=== PATIENT | male | born 1995 ===

== ENCOUNTER 2022-03-14 23:19 | Emergency (ER) | payer OTHER ==
[2022-03-14 23:27] VITALS: BP 108/59
[2022-03-14] MEDS ORDERED: ACETAMINOPHEN 325 MG TAB PO ONE (23:37)
[2022-03-14] MEDS ORDERED: IBUPROFEN 600 MG TAB PO ONE (23:37)
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
--- NOTE | 2022-03-15 00:15 | XRay Report ---
RIGHT HAND 3 VIEW(S) INDICATION / CLINICAL INFORMATION: Right hand pain COMPARISON: None available. FINDINGS: No fracture, dislocation, or significant soft tissue abnormality is demonstrated. No radiopaque forei gn bodies are identified. IMPRESSION: 1. No acute fracture. No significant abnormality. Signer Name: Gt Arreola II, MD Signed: 03/15/2022 12:11 AM Workstation Name: [id number]
--- NOTE | 2022-03-15 00:16 | XRay Report ---
RIGHT WRIST 4 VIEW(S) INDICATION / CLINICAL INFORMATION: Fall with right wrist COMPARISON: None available. FINDINGS: No fracture, dislocation, or significant soft tissue abnormality is demonstrated. No radiopaque forei gn bodies are identified. IMPRESSION: 1. No acute findings. Signer Name: Gt Arreola II, MD Signed: 03/15/2022 12:11 AM Workstation Name: [id number]
--- NOTE | 2022-03-15 00:30 | XRay Report ---
LEFT KNEE 4 VIEW(S) INDICATION / CLINICAL INFORMATION: Fall with left knee pain COMPARISON: None available. FINDINGS: No fracture, dislocation, or significant soft tissue abnormality is demonstrated. No radiopaque forei gn bodies are identified. IMPRESSION: 1.No evidence of acute osseous pathology. Signer Name: Gt Arreola II, MD Signed: 03/15/2022 12:26 AM Workstation Name: [id number]
== END 2022-03-15 00:55 | disposition home or self-care (01) ==
LOC: ED 23:19
DX: S60.511A Abrasion of right hand, initial encounter (principal); M79.641 Pain in right hand; M25.531 Pain in right wrist; M25.562 Pain in left knee; X58.XXXA Exposure to other specified factors, initial encounter; Y93.89 Activity, other specified; Y92.89 Other specified places as the place of occurrence of the external cause; Y99.8 Other external cause status
CPT/HCPCS: 82962; 99284